=== PATIENT | male | born 1935 | race Caucasian/White ===

== ENCOUNTER 2016-10-24 13:42 | Emergency (ER) | payer MEDICARE ==
[2016-11-02] MEDS ORDERED: COUMADIN2.5 MG PO (19:30)
[2016-11-02] MEDS ORDERED: COLACE-DPS100 MG PO ×2 (19:30→19:36)
[2016-11-02] MEDS ORDERED: FLOMAX DPS0.4 MG PO (19:31)
[2016-11-02] MEDS ORDERED: MELATIN3 MG PO (19:31)
[2016-11-02] MEDS ORDERED: COUMADIN5 MG PO (19:31)
[2016-11-02] MEDS ORDERED: DELTASONE DPS20 MG PO (19:31)
[2016-11-02] MEDS ORDERED: OYSTER SHELL C500 MG PO (19:32)
[2016-11-02] MEDS ORDERED: PROTONIX40 MG PO (19:32)
[2016-11-02] MEDS ORDERED: ORGAN-I NR200 MG PO (19:32)
[2016-11-02] MEDS ORDERED: OMEGA-3 DPS1000 MG PO (19:32)
[2016-11-02] MEDS ORDERED: VITAMIN D2000 UNI1 PO (19:33)
[2016-11-02] MEDS ORDERED: ZOCOR DPS20 MG PO (19:33)
[2016-11-02] MEDS ORDERED: REMERON DPS15 MG PO (19:33)
[2016-11-02] MEDS ORDERED: SENOKOT DPS8.6 MG PO (19:33)
[2016-11-02] MEDS ORDERED: SINEMET CR 50/21 TAB PO (19:33)
[2016-11-02] MEDS ORDERED: DUONEB DPS3 ML IH (19:34)
[2016-11-02] MEDS ORDERED: ZOLOFT DPS100 MG PO (19:34)
[2016-11-02] MEDS ORDERED: SYMBICORT160 MCG/6 IH (19:34)
[2016-11-02] MEDS ORDERED: METROGEL 0.75%45 GM TP (19:35)
[2016-11-02] MEDS ORDERED: NIZORAL SHAMPO120 ML TP (19:35)
[2016-11-02] MEDS ORDERED: MURO OU (19:35)
[2016-11-02] MEDS ORDERED: [UNRECOGNIZED DRUG - OTHER] NS (19:35)
[2016-11-02] MEDS ORDERED: TEMOVATE O.05%15 GM TP (19:36)
[2016-11-02] MEDS ORDERED: NORCO 7.5-3251 EACH PO (19:36)
[2016-11-02] MEDS ORDERED: PROVENTIL2.5 MG/3 M IH (19:37)
[2016-11-02] MEDS ORDERED: TYLENOL DPS325 MG PO (19:37)
[2016-11-02] MEDS ORDERED: MAALOX DPS30 ML PO (19:37)
[2016-11-02] MEDS ORDERED: FLONASE 0.05% D16 GM NS (19:38)
--- NOTE | 2016-11-05 08:35 | ER ---
ADMIT: 10/24/2016 RM/LOC: ER [facility] MR#: [id number] [address] [address] ATIF BESS [address] [place] [address] [place] Emergency Room Report SEX: M AGE: 81 : 1935 DATE: 10/24/2016 An 81-year-old gentleman, comes to the Emergency Department with complaints of left-sided neck spasms and leg pain. He describes the spasms most later in his stay in the ER as tiredness in his legs and neck. CBC and CMP were essentially within normal parameters. The patient was given Toradol. DISCHARGE DIAGNOSIS: Muscle spasm. Instructed to follow up with his doctor this week. Austin Means MD/ enrique JOB #: [id number] CC: Cheo Tineo MD, Attending Physician [facility] Physician, Family Physician
== END 2016-10-24 16:15 | disposition home or self-care (01) ==
LOC: ER 13:42
DX: M62.838 Other muscle spasm (principal); I10 Essential (primary) hypertension; J44.9 Chronic obstructive pulmonary disease, unspecified; F41.9 Anxiety disorder, unspecified; Z88.8 Allergy status to other drugs, medicaments and biological substances; Z88.6 Allergy status to analgesic agent

== ENCOUNTER 2016-10-25 10:36 | Emergency (ER) | payer MEDICARE, SELFPAY ==
--- NOTE | 2016-10-31 10:31 | ER ---
ADMIT: 10/25/2016 RM/LOC: [facility] MR#: [id number] [id number] [place], [place] [address] ATIF BESS [address] [place] [address] Emergency Room Report SEX: M AGE: 81 : 1935 DATE: 10/25/2016 ADDENDUM: An 81-year-old white male coming in with essentially arthritic pains in his back. He complains of pain in his hips, also his foot. He also has a little redness in his right foot. He was seen the other day here and then also at the [facility]. His CBC and chemistry looks okay. He also has Parkinson's on top of this. He has peripheral vascular disease as well. At this time, he has a small area of what appears to be erythema which I will call cellulitis on his right dorsum of his foot. He is already on Augmentin which he should continue. His other x-rays showed degenerative changes in his back and as well as his feet, worse in his back than anywhere. He is to continue medications. I gave him 10 of Decadron IM to see if that would actually help, ease him his arthritic pain and then also gave him 20 Hallie 5/325, one p.o. q.6 p.r.n. pain. Advised on the effects of this and then [facility]. CONDITION ON DISCHARGE: Fair. Cheo Tineo MD/ enrique JOB #: [id number] CC: Cheo Tineo MD, Attending Physician UNKNOWN, Family Physician
[2016-11-02] MEDS ORDERED: COUMADIN2.5 MG PO (19:30)
[2016-11-02] MEDS ORDERED: COLACE-DPS100 MG PO ×2 (19:30→19:36)
[2016-11-02] MEDS ORDERED: FLOMAX DPS0.4 MG PO (19:31)
[2016-11-02] MEDS ORDERED: MELATIN3 MG PO (19:31)
[2016-11-02] MEDS ORDERED: COUMADIN5 MG PO (19:31)
[2016-11-02] MEDS ORDERED: DELTASONE DPS20 MG PO (19:31)
[2016-11-02] MEDS ORDERED: OYSTER SHELL C500 MG PO (19:32)
[2016-11-02] MEDS ORDERED: OMEGA-3 DPS1000 MG PO (19:32)
[2016-11-02] MEDS ORDERED: ORGAN-I NR200 MG PO (19:32)
[2016-11-02] MEDS ORDERED: PROTONIX40 MG PO (19:32)
[2016-11-02] MEDS ORDERED: ZOCOR DPS20 MG PO (19:33)
[2016-11-02] MEDS ORDERED: SINEMET CR 50/21 TAB PO (19:33)
[2016-11-02] MEDS ORDERED: SENOKOT DPS8.6 MG PO (19:33)
[2016-11-02] MEDS ORDERED: REMERON DPS15 MG PO (19:33)
[2016-11-02] MEDS ORDERED: VITAMIN D2000 UNI1 PO (19:33)
[2016-11-02] MEDS ORDERED: SYMBICORT160 MCG/6 IH (19:34)
[2016-11-02] MEDS ORDERED: DUONEB DPS3 ML IH (19:34)
[2016-11-02] MEDS ORDERED: ZOLOFT DPS100 MG PO (19:34)
[2016-11-02] MEDS ORDERED: [UNRECOGNIZED DRUG - OTHER] NS (19:35)
[2016-11-02] MEDS ORDERED: METROGEL 0.75%45 GM TP (19:35)
[2016-11-02] MEDS ORDERED: MURO OU (19:35)
[2016-11-02] MEDS ORDERED: NIZORAL SHAMPO120 ML TP (19:35)
[2016-11-02] MEDS ORDERED: TEMOVATE O.05%15 GM TP (19:36)
[2016-11-02] MEDS ORDERED: NORCO 7.5-3251 EACH PO (19:36)
[2016-11-02] MEDS ORDERED: PROVENTIL2.5 MG/3 M IH (19:37)
[2016-11-02] MEDS ORDERED: MAALOX DPS30 ML PO (19:37)
[2016-11-02] MEDS ORDERED: TYLENOL DPS325 MG PO (19:37)
[2016-11-02] MEDS ORDERED: FLONASE 0.05% D16 GM NS (19:38)
== END 2016-10-25 12:40 | disposition home or self-care (01) ==
LOC: ER 10:36
DX: L03.115 Cellulitis of right lower limb (principal); R20.9 Unspecified disturbances of skin sensation; M19.90 Unspecified osteoarthritis, unspecified site; J44.9 Chronic obstructive pulmonary disease, unspecified; I10 Essential (primary) hypertension; G20 Parkinson's disease; Z88.8 Allergy status to other drugs, medicaments and biological substances

== ENCOUNTER 2016-10-27 04:43 | Inpatient (IN) | payer MEDICARE ==
[~2016-10-27] VITALS: Ht 167.6 cm; Wt 66.8 kg
--- NOTE | 2016-10-27 19:01 | ER ---
ADMIT: 10/27/2016 RM/LOC: ER [facility] MR#: [id number] [address] [address] ATIF BESS [address] [place] [address] Emergency Room Report SEX: M AGE: 81 : 1935 DATE: 10/27/2016 HISTORY OF PRESENT ILLNESS: The patient is an 81-year-old male with a past medical history of Parkinson disease, COPD, AFib, and BPH, who came to the ER with chief complaint of bilateral foot pain. The patient has a history of neuropathy too and foot swelling. The patient states he had swelling chronically, and he had the bilateral foot pain for the last week. The patient states for the last day, he had mild erythema on the dorsum of the right foot too. The patient had been to the ER a week ago and lab works and x- ray were noncontributory and the patient was discharged to home. The patient states also he had generalized weakness and denies any chest pain or shortness of breath or headaches. PHYSICAL EXAMINATION: VITAL SIGNS: The patient was afebrile at home. The patient was afebrile in the ER with temperature of 96.9, respiratory rate was 20, with heart rate of 103, blood pressure systolic was 96 over 56 diastolic. GENERAL: The patient was in no distress or pain. Alert and oriented to person, place, and time. HEENT/NECK: Conjunctiva was not pale. Extraocular movements are normal at 3 mm. Pupils reactive to light. The patient had mild ptosis of the left eyelid, which per son is at the baseline. The patient had no drooping of the face. The patient has grossly equal and intact motor and sensory. CHEST: Clear bilateral to auscultation. No crackles. HEART: Normal heart sounds, S1-S2. ABDOMEN: Soft and nontender. No guarding or rebound. MUSCULOSKELETAL: The patient had mild swelling in bilateral dorsum of the both feet, more on the right side. The patient also had an erythema on dorsum of the right foot and mostly on the lateral part. The patient had normoactive range of motion of the ankles. LABORATORY DATA AND IMAGING: X-ray of the right foot was negative for osteomyelitis or fracture or acute changes. The patient had WBC of 12.1, with left shift. Hemoglobin was 11.6 with platelets of 215,000. ESR was elevated to 105, and CRP was also elevated to 20. With the initial diagnosis of right foot cellulitis, the patient was started on IV vancomycin. The patient was signed out to the next shift to follow up on chest x-ray, UA, sepsis workup, the rest of the labs. If all the labs are noncontributory and did not indicate involvement of other systems, the patient can be discharged to home with a prescription of Keflex and follow up in 1 to 2 days with their primary care doctor, per the discretion of the next shift. Robin Dixon MD/ enrique JOB #: [id number] CC: Robin Dixon MD, Attending Physician
--- NOTE | 2016-10-28 16:11 | ER ---
ADMIT: 10/27/2016 RM/LOC: 402 [facility] MR#: [id number] [id number] [place], [place] [address] ATIF BESS [address] [place] [address] Emergency Room Report SEX: M AGE: 81 : 1935 DATE: 10/27/2016 TIME: 0443 hours. Please refer to Dr[address] Dixon's T sheet for complete H and P. Briefly, the patient is an 81-year-old who comes in for leg pain, just not doing well. I am following up on his labs. He states that he was in here and diagnosed with cellulitis. The labs on following up, CBC was normal except white count 12.1, hemoglobin 11.6. Chemistries normal except sodium 134, BUN 25, glucose 100. Sedimentation rate was 105, CRP was 20. CK 479, CK-MB was normal. Troponin normal. Lactate was normal. INR was 2.13. Procalcitonin was normal. Chest x- ray revealed no acute infiltrate. Right foot x-ray showed no acute findings. EKG was sinus rhythm, rate 79, no changes. He was weak when we tried to get him up and [facility] did [facility], [facility] the [facility], they were [facility] on [facility]. They said to keep him here. We started vancomycin and Zosyn on the sepsis pathway. He was tolerating well, his vital signs were stable. I talked to his primary care here, we will admit to the hospital. ASSESSMENT: 1. Right foot cellulitis. 2. General weakness. 3. Very early sepsis with a normal lactate. PLAN: Admit to the hospital. Sulaiman Marquez MD/ enrique JOB #: [id number] CC: Hina Gomez MD, Attending Physician Hina Gomez MD, Family Physician
--- NOTE | 2016-10-29 09:27 | HP ---
ADMIT: 10/27/2016 RM/LOC: 402 [facility] MR#: [id number] [address] [place], [place] [address] ATIF BESS [address] [place] [address] History and Physical SEX: M AGE: 81 : 1935 DATE OF SERVICE: CHIEF COMPLAINT: Weakness, pain. HISTORY OF PRESENT ILLNESS: Mr. Bess is a very pleasant 81-year-old man, who has a past medical history significant for history of PE, history of polymyalgia rheumatica, bilateral carotid artery disease, history of GERD, COPD, BPH, who presented to the ER today with a complaint of weakness and pain. He actually had been in the ER on Monday and Monday of this week, each time he was having quite a bit of pain. On Monday, he was noted to have some erythema on the top of his right foot, was started on some p.o. antibiotics. Throughout the week, he has had more pain, got weaker, unable to get up and move around. Any time he moved anything, he reports that he has severe pain. Notes that he was brought in today and just continued to have severe pain. Evaluation in the ER, possible left lower lobe pneumonia although I really question this, as well as weakness. Therefore, they felt warranted admission for further evaluation and treatment. Of note, the patient does have a history of PMR for which he has had flares in the past after being taken off the prednisone. [facility] due to [facility] reasons and is unsure when he stops taking prednisone; however, the last time I saw him, he was on 7 mg of prednisone daily in February of 2016. Apparently, he says he has been tapered off it after that time. PAST MEDICAL HISTORY: Significant for: 1. History of pulmonary embolism and DVT. 2. COPD. 3. History of MRSA pneumonia. 4. Chronic sinusitis. 5. Anxiety. 6. BPH. 7. History of atrial fibrillation. 8. Polymyalgia rheumatica with flares, off prednisone. 9. Hypertension. 10.Hyperlipidemia. 11.Spondylosis. 12.History of bilateral carotid artery disease. 13.History of pericardial effusion. 14.History of sensory polyneuropathy. 15.Insomnia. 16.Parkinson's. 17.Hyperlipidemia. PAST SURGICAL HISTORY: 1. Status post appendectomy. 2. Status post tonsillectomy. 3. Status post a shoulder repair surgery. 4. Status post prostate surgery. 5. Status post sinus surgery. ADMIT: 10/27/2016 RM/LOC: 402 [facility] MR#: [id number] [address] [address] ATIF BESS [address] [place] [address] History and Physical SEX: M AGE: 81 : 1935 MEDICATIONS: Medication list currently: 1. DuoNeb three times a day. 2. Symbicort 160/4.5, two puffs b.i.d. 3. Sinemet 50/200 t.i.d. 4. Cromolyn two sprays both nostrils twice daily. 5. Colace 200 mg daily. 6. Flonase daily as needed. 7. Guaifenesin t.i.d. 8. Melatonin 10 mg p.o. at bedtime. 9. Metoprolol tartrate 25 mg p.o. b.i.d. 10.Remeron 15 mg p.o. at bedtime. 11.Protonix 40 mg p.o. b.i.d. 12.Senna p.o. daily. 13.Zoloft 100 mg p.o. daily. 14.Simvastatin 20 mg p.o. daily. 15.Tamsulosin 0.4 p.o. daily. 16.Coumadin. 17.Vitamin D3. 18.Calcium. 19.Fish oil. SOCIAL HISTORY: He was a former smoker, he quit 31 years ago but previously did smoke for 37 years. ALLERGIES: ASPIRIN, IBUPROFEN, BACTRIM, LIDOCAINE, AND SINGULAIR. FAMILY HISTORY: Positive for heart disease, cancer, hypertension, and diabetes. REVIEW OF SYSTEMS: Obtained. Otherwise was grossly positive. He is a difficult historian and that he is very tangential, did start it on different topics and it is hard to redirect, but he does have pain pretty much all over, especially with moving. He feels like it is secondary to his Parkinson's. PHYSICAL EXAMINATION: GENERAL: He is alert and oriented. He is in no apparent distress. HEENT: Pupils are round and reactive. Oropharynx is dry mucous membranes. NECK: Supple. HEART: Normal rate with a regular rhythm. LUNGS: Diminished breath sounds, but no focal findings. ABDOMEN: Soft. Bowel sounds are present. EXTREMITIES: He has erythema and edema over the right dorsum of his right foot, it is not really warm. He really is sensitive to touch anywhere on his body and does not want me to touch him. Otherwise, he has good range of motion of his upper and lower extremities. SKIN: Warm and dry. ASSESSMENT AND PLAN: ADMIT: 10/27/2016 RM/LOC: 402 [facility] MR#: [id number] [facility] [address] [address] ATIF BESS [address] [place] [address] History and Physical SEX: M AGE: 81 : 1935 1. Weakness. 2. Questionable left lower lobe pneumonia. 3. Diffuse myalgias. 4. Elevated inflammatory markers. 5. Chronic anticoagulation for pulmonary embolism and history of atrial fibrillation. 6. Right foot erythema. At this time, we will go ahead and start him on some broad-spectrum antibiotics to cover for a possible pneumonia which I do not suspect as well as a right foot cellulitis which I also think it is more inflammatory. We will go ahead and put him on prednisone 60 mg p.o. daily and plan to follow to see how his markers do. I do suspect it is more of a polymyalgia rheumatica flare. 7. Chronic obstructive pulmonary disease, continue his medications. 8. Chronic sinusitis. 9. Parkinson's. 10.Gastroesophageal reflux disease. 11.Benign prostatic hypertrophy. We will continue all his home medications. Hina Gomez MD/ enrique JOB #: [id number] CC: Hina Gomez, Attending Physician Hina Gomez, Family Physician
[2016-11-02] MEDS ORDERED: COUMADIN2.5 MG PO (19:30)
[2016-11-02] MEDS ORDERED: COLACE-DPS100 MG PO ×2 (19:30→19:36)
[2016-11-02] MEDS ORDERED: DELTASONE DPS20 MG PO (19:31)
[2016-11-02] MEDS ORDERED: MELATIN3 MG PO (19:31)
[2016-11-02] MEDS ORDERED: COUMADIN5 MG PO (19:31)
[2016-11-02] MEDS ORDERED: FLOMAX DPS0.4 MG PO (19:31)
[2016-11-02] MEDS ORDERED: PROTONIX40 MG PO (19:32)
[2016-11-02] MEDS ORDERED: OYSTER SHELL C500 MG PO (19:32)
[2016-11-02] MEDS ORDERED: ORGAN-I NR200 MG PO (19:32)
[2016-11-02] MEDS ORDERED: OMEGA-3 DPS1000 MG PO (19:32)
[2016-11-02] MEDS ORDERED: REMERON DPS15 MG PO (19:33)
[2016-11-02] MEDS ORDERED: ZOCOR DPS20 MG PO (19:33)
[2016-11-02] MEDS ORDERED: SENOKOT DPS8.6 MG PO (19:33)
[2016-11-02] MEDS ORDERED: VITAMIN D2000 UNI1 PO (19:33)
[2016-11-02] MEDS ORDERED: SINEMET CR 50/21 TAB PO (19:33)
[2016-11-02] MEDS ORDERED: DUONEB DPS3 ML IH (19:34)
[2016-11-02] MEDS ORDERED: SYMBICORT160 MCG/6 IH (19:34)
[2016-11-02] MEDS ORDERED: ZOLOFT DPS100 MG PO (19:34)
[2016-11-02] MEDS ORDERED: [UNRECOGNIZED DRUG - OTHER] NS (19:35)
[2016-11-02] MEDS ORDERED: METROGEL 0.75%45 GM TP (19:35)
[2016-11-02] MEDS ORDERED: MURO OU (19:35)
[2016-11-02] MEDS ORDERED: NIZORAL SHAMPO120 ML TP (19:35)
[2016-11-02] MEDS ORDERED: NORCO 7.5-3251 EACH PO (19:36)
[2016-11-02] MEDS ORDERED: TEMOVATE O.05%15 GM TP (19:36)
[2016-11-02] MEDS ORDERED: MAALOX DPS30 ML PO (19:37)
[2016-11-02] MEDS ORDERED: PROVENTIL2.5 MG/3 M IH (19:37)
[2016-11-02] MEDS ORDERED: TYLENOL DPS325 MG PO (19:37)
[2016-11-02] MEDS ORDERED: FLONASE 0.05% D16 GM NS (19:38)
--- NOTE | 2016-12-01 11:33 | DS ---
ADMIT: 10/27/2016 RM/LOC: [address] [facility] MR#: [id number] [address] [address] [address] [place], [place] [address] Discharge Summary SEX: M AGE: 81 : 1935 ADMISSION DATE: 10/27/2016 DISCHARGE DATE: 11/01/2016 DISCHARGE DIAGNOSES: 1. Myalgias. 2. Acute polymyalgia rheumatica. 3. Pneumonia. 4. Cellulitis of his right lower leg. 5. Chronic obstructive pulmonary disease with acute exacerbation. 6. Atrial fibrillation. 7. Parkinson's. 8. Polyneuropathy. 9. BPH (benign prostatic hypertrophy). 10.Gastroesophageal reflux disease. 11.Chronic sinusitis. 12.Anxiety. 13.Hypertension. 14.Hyperlipidemia. 15.Spondylosis. 16.Insomnia. 17.History of PE (pulmonary embolism). 18.History of MRSA (methicillin-resistant Staphylococcus aureus). 19.History of DVT (deep venous thrombosis) PE (pulmonary embolism). HOSPITAL COURSE: The patient was admitted with failure to thrive as an outpatient. He was noted to be weak. He was admitted and we did check some markers for inflammation, they were noted to be markedly elevated. I suspect that he had recurrence of his previous polymyalgia. I went ahead and started him on prednisone 60 mg p.o. daily and within a couple of hours the patient was actually feeling much better. We did monitor his right foot. It looked like it maybe had a little bit of cellulitis versus just some erythema. It did improve over the next couple of days. He was seen by PT/OT. Really was doing much better. He continued to have some trouble with weakness. There was some question of pneumonia on his chest x-ray. Otherwise, the patient was doing well. His prednisone was tapered down to 40 mg p.o. daily. The plan was for the patient to be discharged to a skilled facility. DISCHARGE MEDICATIONS: His medications were: 1. Colace 200 mg p.o. daily. 2. Coumadin as directed. 3. Prednisone 40 mg p.o. daily. 4. Flomax 0.4 p.o. daily. 5. Lopressor was discontinued. 6. Melatonin 10 mg p.o. daily. 7. [place]-3 1000 mg p.o. daily. 8. Organidin 400 mg p.o. t.i.d. 9. Oyster shell calcium 500 mg p.o. daily. 10.Protonix 40 mg p.o. b.i.d. 11.Remeron 15 mg p.o. at bedtime. ADMIT: 10/27/2016 RM/LOC: 526 [facility] MR#: [id number] [address] [address] [place] [address] Discharge Summary SEX: M AGE: 81 : 1935 12.Senokot p.o. b.i.d. 13.Sinemet 50/200 1 tab p.o. t.i.d. 14.Vitamin D 2000 units daily. 15.Zocor 20 mg p.o. at bedtime. 16.Zoloft 100 mg p.o. daily. 17.DuoNeb t.i.d. 18.Symbicort 160/4.5, two puffs b.i.d. 19.NasalCrom 2 puffs b.i.d. 20.MetroGel p.r.n. 21.Nizoral shampoo. 22.Temovate p.r.n. 23.Omnicef 300 mg p.o. b.i.d. x12 days. DISCHARGE INSTRUCTIONS: He is to have PT/OT. See and evaluate. Follow up with Dr. Hina Gomez in 2 weeks. Cardiac diet. BMP, INR, CRP and sedimentation rate in one week. I spent 35 minutes in the discharge planning and coordination of care. Hina Gomez MD/ vdg JOB #: [id number] CC: Hina Gomez MD, Attending Physician Hina Goemz MD, Family Physician
== END 2016-11-01 13:44 | DRG 545 ==
LOC: ER 04:43 → 4PCU 09:00 → 5MS 10-31 23:59 → 4PCU 11-01 00:51 → 5MS 11-01 13:44
PROVIDERS: ADMIT Internal Medicine
DX: M35.3 Polymyalgia rheumatica (principal); J18.9 Pneumonia, unspecified organism; L03.115 Cellulitis of right lower limb; J44.0 Chronic obstructive pulmonary disease with (acute) lower respiratory infection; I48.91 Unspecified atrial fibrillation; G20 Parkinson's disease; J44.1 Chronic obstructive pulmonary disease with (acute) exacerbation; G62.9 Polyneuropathy, unspecified; N40.0 Benign prostatic hyperplasia without lower urinary tract symptoms; K21.9 Gastro-esophageal reflux disease without esophagitis; J32.9 Chronic sinusitis, unspecified; F41.9 Anxiety disorder, unspecified; I10 Essential (primary) hypertension; E78.5 Hyperlipidemia, unspecified; M47.9 Spondylosis, unspecified; G47.00 Insomnia, unspecified; Z86.711 Personal history of pulmonary embolism; Z86.14 Personal history of Methicillin resistant Staphylococcus aureus infection; Z86.718 Personal history of other venous thrombosis and embolism; Z79.01 Long term (current) use of anticoagulants; Z87.891 Personal history of nicotine dependence